=== PATIENT | female | born 1990 | race Caucasian/White ===

== ENCOUNTER → 2017-07-25 | Outpatient (CLI) | payer BC ==
[~2017-07-25] MED LIST: BCPILLS PO
[2017-07-25 18:16] LABS: URINE APPEARANCE CLEAR (CLEAR); URINE BILIRUBIN NEG (NEG); URINE COLOR YELLOW; URINE NITRITE NEG (NEG); URINE SPECIFIC GRAVITY 1.012 (1.000-1.030); UROBILINOGEN NEG (NEG)
[2017-07-25 18:18] LABS: MANUAL MICROSCOPIC REQUIRED? NO; REVIEW REQ? YES
[2017-07-28 00:09] LABS: CHLAMYDIA TRACH RNA*** NOT DETECTED (NOT DETECTED); GC (NEIS GONORRHOEAE)RNA** NOT DETECTED (NOT DETECTED)
== END | disposition home or self-care (01) ==
LOC: C.LABSPEC 17:32
PROVIDERS: ATTEND Obstetrics & Gynecology
DX: Z34.01 Encounter for supervision of normal first pregnancy, first trimester (principal); Z3A.00 Weeks of gestation of pregnancy not specified

== ENCOUNTER → 2017-12-29 | Outpatient (CLI) | payer BC | END | disposition home or self-care (01) | LOC: C.LABSPEC 11:09 | PROVIDERS: ATTEND Obstetrics & Gynecology | DX: O09.93 Supervision of high risk pregnancy, unspecified, third trimester (principal) ==

== ENCOUNTER 2018-01-16 12:56 | Inpatient (IN) | payer BC ==
[~2018-01-16] VITALS: Ht 172.7 cm; Wt 86.0 kg
[2018-01-16] MEDS ORDERED: LACTATED RINGER'S 1000ML 1,000 ML IV SCH (13:29)
[2018-01-16] MEDS ORDERED: LACTATED RINGER'S 1000ML 1,000 ML IV PRN (13:29)
[2018-01-16 13:57] VITALS: Ht 172.7 cm; Wt 86.0 kg
[2018-01-16] MEDS ORDERED: PRENTAB26 PO (13:59)
[2018-01-16 14:01] LABS: HEMATOCRIT 38.4 % (37-47); HEMOGLOBIN 13.3 g/dL (12.0-16.0); MEAN CELL VOLUME 86.7 fL (80-100); MEAN CORPUSCULAR HGB CONC 34.6 g/dl (32-36); MEAN PLATELET VOLUME 8.9 fL (7.4-10.4); PLATELET COUNT 268 K/uL (130-400); RED CELL DISTRIBUTION WIDTH CV 13.2 % (11.5-14.5); RED CELL DISTRIBUTION WIDTH SD 41.7 fL (36.4-46.3); WHITE BLOOD COUNT 11.93 K/uL (4.8-10.8)
[2018-01-16] MEDS ORDERED: FENTANYL CITRATE INJ 50 MCG/1 ML 2 ML VIAL ONE (14:50)
[2018-01-16] MEDS ORDERED: BUPIVACAINE 0.25% 30 ML VIAL ONE (14:50)
[2018-01-16] MEDS ORDERED: EpHEDrine SULFATE INJ 50 MG/ML AMP ONE (14:50)
[2018-01-16] MEDS ORDERED: FENTANYL 2MCG/ML ROPIV 1.25MG/ML 100ML BAG EPI ONE (14:51)
[2018-01-16] MEDS ORDERED: OXYTOCIN 30 UNITS/500ML NSS IV ONE ×2 (14:53→16:01)
[2018-01-16 15:31] LABS: ALBUMIN 2.7 gm/dl (3.4-5.0); ALKALINE PHOSPHATASE 120 U/L (45-117); ALT/SGPT 22 U/L (12-78); AST/SGOT 20 U/L (15-37); BLOOD UREA NITROGEN 7 mg/dl (7-18); CALCIUM 8.6 mg/dl (8.5-10.1); CARBON DIOXIDE 23 mmol/L (21-32); CREATININE 0.72 mg/dl (0.60-1.20); GLUCOSE 96 mg/dl (70-99); POTASSIUM 3.7 mmol/L (3.5-5.1); SODIUM 137 mmol/L (136-145); URIC ACID 4.5 mg/dl (2.6-7.2)
[2018-01-16] MEDS ORDERED: OXYTOCIN 30 UNITS/500ML NSS IV PRN (16:15)
[2018-01-16] MEDS ORDERED: LANOLIN OINT EXT PRN (16:15)
[2018-01-16] MEDS ORDERED: BENZOCAINE 20% AER SPR 82.5 GM CAN EXT PRN (16:15)
[2018-01-16] MEDS ORDERED: OXYCODONE/ACETAMINOPHEN 5-325 TAB PO PRN (16:15)
[2018-01-16] MEDS ORDERED: SUPERCREAM 0.870 % 15GM JAR EXT PRN (16:15)
[2018-01-16] MEDS ORDERED: HYDROCORTISONE ACETATE 25 MG SUPP PR PRN (16:15)
[2018-01-16] MEDS: IBUPROFEN 600 MG TAB PO PRN ×2 (16:23→23:40)
--- NOTE | 2018-01-16 16:40 | DELIVERY SUMMARY ---
DATE OF OPERATION: 01/16/2018 PREDELIVERY DIAGNOSES: 1. A 27-year-old G1, P0 at 39 weeks and 0 days. 2. Spontaneous labor. 3. Chronic hypertension. POSTDELIVERY DIAGNOSES: Same. PROCEDURE: Spontaneous vaginal delivery and repair of second degree perineal laceration. ESTIMATED BLOOD LOSS: 300 mL. FINDINGS: Viable female . Apgars 7 and 9. Weight pending. Please see nursery records. DESCRIPTION OF DELIVERY: The patient presented in spontaneous labor to labor and delivery at 4 cm with regular contractions. She then progressed to complete with spontaneous rupture of membranes, was examined and found to be completely dilated. She then began to push without epidural anesthesia, spontaneously vaginally delivered a viable female from the cephalic presentation. The head delivered in the left occiput anterior position. There was a compound hand presentation at the time of delivery of the head. This was delivered and found to be the posterior arm, next the anterior shoulder was delivered followed by the body of the baby and the baby was placed on mother's abdomen. The cord was doubly clamped and cut. A spontaneous cry was heard. A cord segment was retained for cord gases. Cord blood was obtained and the placenta was then delivered spontaneously intact with a 3-vessel cord. Pitocin was given. The uterus became firm. The uterus and vagina were cleared of all clots and debris. The cervix, vagina and perineum were inspected and a second degree perineal laceration was noted. Lidocaine was injected in the local area for repair. The perineal defect was reapproximated using 3-0 Vicryl in a running locked stitch in standard fashion. Excellent hemostasis was observed. The patient and baby tolerated the delivery well and are recovering in the room in stable and good condition. Sponge, instruments, and needle counts were correct at the conclusion of the delivery x2. I attest to the content of the Intraoperative Record and any orders documented therein. Any exception s are noted below.
[2018-01-16 19:45] VITALS: BP 151/98; PULSE 87; TEMP 36.6
[2018-01-16] MEDS: DOCUSATE SODIUM 100 MG CAP PO SCH (19:56)
[2018-01-16 23:40] VITALS: BP 138/90; PULSE 100; TEMP 36.8; O2SAT 99
[2018-01-17] VITALS (8 sets, daily range): BP systolic 132–156; BP diastolic 83–100; PULSE 75–96; TEMP 36.7–36.9; O2SAT 99–100
--- NOTE | 2018-01-17 06:18 | OB/GYN Progress Note ---
[facility] Progress Note Date of Service Jan 17, 2018. Subjective conversation w/ patient, physical exam Ambulation: ambulating normally Voiding: no voiding problems Passing Gas: Yes Diet Tolerance: Regular Diet Lochia: Moderate Feeding Type: Breast Feeding Pain: controlled Review of Systems Constitutional: No problem reported Respiratory: No problem reported Cardiac: No problem reported Breast: No problem reported Abdomen: No problem reported Female : No problem reported Objective Vital Signs Date Time Temp Pulse Resp B/P (MAP) Pulse Ox O2 Delivery O2 Flow Rate FiO2 01/17/18 03:25 36.9 75 18 132/83 (99) 01/16/18 23:40 Room Air 01/16/18 23:40 36.8 100 17 138/90 (106) 99 Room Air 01/16/18 19:45 Room Air 01/16/18 19:45 36.6 87 16 151/98 (115) Room Air Physical Exam General Appearance: WELL-APPEARING, NO APPARENT DISTRESS Respiratory/Chest: no respiratory distress Cardiovascular: regular rate, rhythm Abdomen: non tender, soft Fundus: Firm Extremities: normal inspection Laboratory Results Last 24 Hours Test 01/16/18 13:47 01/16/18 14:49 01/17/18 06:05 White Blood Count 11.93 K/uL Red Blood Count 4.43 M/uL Hemoglobin 13.3 g/dL Hematocrit 38.4 % Mean Corpuscular Volume 86.7 fL Mean Corpuscular Hemoglobin 30.0 pg Mean Corpuscular Hemoglobin Concent 34.6 g/dl RDW Standard Deviation 41.7 fL RDW Coefficient of Variation 13.2 % Platelet Count 268 K/uL Mean Platelet Volume 8.9 fL Sodium Level 137 mmol/L Potassium Level 3.7 mmol/L Chloride Level 105 mmol/L Carbon Dioxide Level 23 mmol/L Anion Gap 9.0 mmol/L Blood Urea Nitrogen 7 mg/dl Creatinine 0.72 mg/dl Est Creatinine Clear Calc Drug Dose 132.4 ml/min Estimated GFR () 131.2 Estimated GFR (Non- 113.2 BUN/Creatinine Ratio 9.6 Random Glucose 96 mg/dl Uric Acid 4.5 mg/dl Calcium Level 8.6 mg/dl Total Bilirubin 0.3 mg/dl Direct Bilirubin < 0.1 mg/dl Aspartate Amino Transf (AST/SGOT) 20 U/L Alanine Aminotransferase (ALT/SGPT) 22 U/L Alkaline Phosphatase 120 U/L Total Protein 7.0 gm/dl Albumin 2.7 gm/dl Globulin 4.3 gm/dl Albumin/Globulin Ratio 0.6 Assessment and Plan Post- Day Number: 1 Continue Routine Care: PPD#1 doing well. Continue to monitor BPs - have been 130s/90s. Anticipate discharge home tomorrow.
[2018-01-17 06:24] LABS: HEMATOCRIT 31.8 % (37-47); HEMOGLOBIN 10.8 g/dL (12.0-16.0)
[2018-01-17] MEDS: DOCUSATE SODIUM 100 MG CAP PO SCH ×2 (09:07→20:25)
[2018-01-17] MEDS: IBUPROFEN 600 MG TAB PO PRN (16:58)
[2018-01-17] MEDS ORDERED: BISACODYL 5 MG TABEC PO SCH (20:00)
--- NOTE | 2018-01-17 22:04 | Discharge Instructions ---
Discharge Instructions Date of Service Jan 17, 2018. Admission Reason for Admission: Spontaneous [place] Of Labor Discharge Discharge Diagnosis / Problem: after delivery Discharge Goals Goal(s): Routine recovery after delivery Medications Continue Dispensed Medications: supercream, dermaplast, tucks, lansinoh Activity Recommendations Activity Limitations: as noted below ACTIVITY RECOMMENDATIONS: * Gradual return to full activity over the next 2-3 weeks. * No lifting - nothing heavier than baby over the next 2-3 weeks. * Do not engage in vigorous exercise, sexual activity or sports until cleared by your physician. * Do not drive or operate any motorized equipment until cleared by your physician. * You may shower/bathe daily. MEDICATIONS: For discomfort or pain, you may use Acetaminophen (Tylenol), Ibuprofen (Advil), or Naproxen (Aleve) following the package directions. For constipation you may use Colace following the package directions. BREAST CARE: If you are not breast feeding: * Wear a supportive bra 24 hours a day for one to two weeks. * Avoid stimulating your breasts and nipples as much as possible during the first few weeks after delivery. * When taking a shower, have the warm water hit your back, not breasts. * When your breasts feel full, apply ice packs. Usually three to four times a day helps ease the discomfort. * Take a mild pain medication (Tylenol / Motrin) when you are uncomfortable. If breast feeding: * Use breast milk to lubricate nipples. Lansinoh cream may be used for sore nipples. You do not need to remove cream prior to breast feeding. If using a different brand of cream, check the label for directions regarding removal of cream prior to nursing. * Wear a supportive bra. * If having problems with breasts or breast feeding, call a change consultant or your health care provider. EPISIOTOMY CARE: After delivery, if you have an episiotomy (stitches), the following steps will ease discomfort and aid healing. * For the first 24 hours after delivery, place ice packs next to your episiotomy to help reduce swelling. * After the first 24 hour-period, sitz baths, either portable or in the tub, are suggested. A shower with a shower arm sprayed over the episiotomy may be comforting. * Ade care should be done after each voiding and bowel movement. Squirt warm water from a plastic bottle over the perineum (region of the body between the anus and urinary opening) and pat dry. * Use Dermoplast to ease discomfort. Shake container. [place] directly over the episiotomy. Place a Tucks on a clean sanitary pad next to your episiotomy. SPECIAL CARE INSTRUCTIONS: When you are discharged from the hospital, it is important for you to follow the instructions listed below: * During the first week at home, you should be able to care for yourself and your baby. In addition, the usual light household activities are encouraged. * Limit your activities to the way you feel. Do not try to clean the house or move furniture. Be sensible. * If you actively engage in sports and have done so up until the time of your delivery, you may resume these activities as soon as you feel able. This may take up to one month or even longer. Use good judgment. * Continue to take your vitamins for at least six weeks after the of your baby. * Your diet need not be limited unless you were on a special diet before your delivery. Breast-feeding mothers need around 2500 calories per day and at least 64-80 ounces of fluid per day (8 to 10 glasses). * You should eat foods from the four major food groups. Crash diets or fad diets are to be avoided. Eating lean meats, fresh fruits and vegetables, low-fat dairy products, high fiber foods and a regular exercise program, will help you get back to your pre- weight without putting your health at risk. * Constipation is sometimes a problem after delivery. Take a mild laxative as needed. If breast feeding, Milk of Magnesia is acceptable to use. You may use a suppository or Fleets enema if no episiotomy. * A daily shower or tub bath is suggested. Be sure to thoroughly and gently dry the perineum. * A bloody vaginal discharge will usually continue until around four weeks post . A small amount of bleeding may continue for as long as six weeks. Vaginal discharge changes from the bright red bleeding after delivery to pink then brownish and finally yellowish-pink before becoming white and disappearing. * Bleeding may increase with activity. Your first period may come in 4-8 weeks. If you are breast feeding, your period may be delayed even longer. * [place] (sex) can begin whenever both you and your partner feel comfortable and do not have any form of genital infection. It is recommended that you wait at least six weeks for internal and external healing to occur. If you have questions, please talk to your health care practitioner. A condom should be used to prevent infection and . * Foreplay, gentle intercourse and lubrication is very important the first several times to prevent pain. A water-based lubricant such as K-Y jelly or Astroglide may be used. * If you have RH negative blood and your baby is RH positive, you will receive RHOGAM by injection prior to discharge. The nurse will give you a card to keep with you that has the date and place that you received RHOGAM after delivery. * During your care, you had a Rubella screen done to check for the presence of rubella antibodies in your blood. If your test was negative, you will receive a Rubella vaccine prior to discharge. This vaccine may cause a fever, soreness at the injection site and flu-like symptoms. If these symptoms persist, notify your health care practitioner. is not advised for one month after a Rubella vaccine. * Verbalizes understanding of car seat law as reviewed with patient nursing. * Car Seat hand-out given and reviewed with patient by nursing. * Shaken baby information reviewed with patient by nursing. Call you doctor if: * Heavy bleeding (saturating several pads an hour) or passing clots the size of your fist. * A fever >101 degrees F (38.3 degrees C) on two occasions four hours apart and /or chills. * Unusual pain in the pelvic or vaginal areas. * "Baby Blues" lasting longer than two weeks. If you have any questions or concerns, call your health care practitioner at . FOLLOW UP VISIT: * Please call the office at to schedule a 6 week examination. It is important you keep this appointment. It is important for you to make arrangements for either yearly or twice yearly check-ups thereafter. . Current Hospital Diet Patient's current hospital diet: Regular OB Diet Discharge Diet Recommended Diet: Regular Diet Pending Studies Studies pending at discharge: no Medical Emergencies . Who to Call and When: Medical Emergencies: If at any time you feel your situation is an emergency, please call 911 immediately. . Non-Emergent Contact Non-Emergency issues call your: Curing Pickling Packer . . "Provider Documentation" section prepared by Galina Sam. .
[2018-01-18 02:35] VITALS: BP 131/90; PULSE 85; TEMP 37
[2018-01-18 04:40] VITALS: BP 131/82; PULSE 82
--- NOTE | 2018-01-18 08:12 | Progress Note ---
Subjective Jan 18, 2018. Subjective conversation w/ patient, physical exam Ambulation: ambulating normally Voiding: no voiding problems Diet Tolerance: Regular Diet Lochia: Small Feeding Type: Breast Feeding Pain: no pain issues Comment: last night had episode of feeling funny, weak. bp was elevated but then came down, has chtn. opted not to start any meds and this am she says feels much better, drank more water overnight and she thinks that helped. she is ready to go home. Objective Vital Signs Date Time Temp Pulse Resp B/P (MAP) Pulse Ox O2 Delivery O2 Flow Rate FiO2 01/18/18 04:40 82 131/82 (98) 01/18/18 02:35 37.0 85 18 131/90 (104) Room Air 01/17/18 23:05 36.9 82 18 136/90 (105) 100 Room Air 01/17/18 23:05 100 Room Air 01/17/18 22:00 36.9 89 18 138/83 (101) 99 Room Air 01/17/18 21:45 36.7 80 18 156/100 (118) 100 Room Air 01/17/18 20:15 82 137/89 (105) 01/17/18 15:41 100 Room Air 01/17/18 15:41 36.8 96 18 149/94 (112) 100 Room Air 01/17/18 13:20 36.7 91 20 146/85 (105) 100 Room Air 01/17/18 09:30 36.7 81 15 132/86 (101) 99 Physical Exam General Appearance: WELL-APPEARING, WD/WN, NO APPARENT DISTRESS Respiratory/Chest: lungs clear Cardiovascular: regular rate, rhythm Abdomen: non tender, soft Fundus: Firm, Relation to Umbilicus (2 down) Extremities: non-tender Assessment and Plan Post- Day#: 2 Continue Routine Care: stable, d/c home, advised one wk bp check with nurse in office. then 6 wks pp check. instructions reviewed.
[2018-01-18] MEDS: IBUPROFEN 600 MG TAB PO PRN (08:18)
[2018-01-18] MEDS: DOCUSATE SODIUM 100 MG CAP PO SCH (08:18)
[2018-01-18 08:51] VITALS: BP 132/92; PULSE 96; TEMP 36.7; O2SAT 98
[2018-01-18 09:04] VITALS: O2SAT 98
[2018-01-18 13:15] VITALS: BP_DIAS 92; PULSE 96; TEMP 36.7
== END 2018-01-18 13:15 | disposition home or self-care (01) | DRG 774 ==
LOC: C.LD 12:56 → C.OPB 12:56 → C.LD 13:30 → C.OPB 13:39 → C.OBG 18:50
PROVIDERS: ADMIT Obstetrics & Gynecology; ATTEND Obstetrics & Gynecology
PROC: 10E0XZZ Delivery of Products of Conception, External Approach (ICD-10-PCS; principal; 2018-01-16)
PROC: 0KQM0ZZ Repair Perineum Muscle, Open Approach (ICD-10-PCS; principal; 2018-01-16)
DX: O10.92 Unspecified pre-existing hypertension complicating childbirth (principal); O32.6XX0 Maternal care for compound presentation, not applicable or unspecified; O70.1 Second degree perineal laceration during delivery; Z3A.39 39 weeks gestation of pregnancy; Z37.0 Single live birth